=== PATIENT | male | born 1970 | race African-American/Black ===

== ENCOUNTER 2018-11-04 10:56 | Emergency (ER) | payer OTHER ==
[2018-11-04 11:01] VITALS: BP 110/67
[2018-11-04] MEDS ORDERED: BESIFLOXACIN HCL 0.6% OPH SUSP 5 ML BOTTLE OS PRN (11:25)
--- NOTE | 2018-11-04 11:27 | ER Document Report ---
HPI - HPI Time Seen by Provider: 11/04/18 11:13 Pain Level: 4 Notes: Patient is a 47-year-old male with no significant past medical history who presents complaining of left eye redness, irritation, watering/tearing after possibly irritating his eye when he was spray painting a few days ago at work. Patient states that he does wear contact lenses and has continued to wear them. Denies drug allergies. No other concerns or complaints. He has not noticed any changes in his vision otherwise or recent illness. Denies any headache, fever, neck pain, changes in vision/speech/mentation/hearing, URI, sore throat, chest pain, palpitations, syncope, cough, shortness of breath, wheeze, dyspnea, abdominal pain, nausea/vomiting/diarrhea, urinary retention, dysuria, hematuria, or rash. - ROS Systems Reviewed and Negative: Yes All other systems reviewed and negative - CONSTITUTIONAL Constitutional: DENIES: Fever, Chills - EENT EENT: REPORTS: Eye problems - left eye Past Medical History - Social History Smoking Status: Unknown if Ever Smoked Family History: Reviewed & Not Pertinent Patient has suicidal ideation: No Patient has homicidal ideation: No Renal/ Medical History: Denies: Hx Peritoneal Dialysis Past Surgical History: Reports: Hx Orthopedic Surgery Vertical Provider Document - CONSTITUTIONAL Agree With Documented VS: Yes Notes: PHYSICAL EXAMINATION: GENERAL: Well-appearing, well-nourished and in no acute distress. A&Ox4 HEAD: Atraumatic, normocephalic. EYES: Pupils equal round and reactive to light, extraocular movements intact, sclera anicteric, conjunctiva left shows injection with tearing. Rt w/o injection discharge or matting. Non-tender to palp of the globe and eye itself. No surrounding erythema or swelling noted. See visual acuity. Wood's lamp/flourescein: There is a white opacification vs paint noted to white light. + possible ulceration with uptake noted 12 o'clock position or cornea. No dung sign noted. ENT: EAC clear b/l. TM's intact b/l without erythema, fluid, or perforation. Nares patent and without discharge. oropharynx clear without exudates. No tonsilar hypertrophy or erythema. Moist mucous membranes. No sinus tenderness. Uvula midline. No palatine shift. No airway compromise. No drooling or h oarseness. NECK: Normal range of motion, supple without lymphadenopathy. No rigidity/meningismus. LUNGS: Breath sounds clear to auscultation bilaterally and equal. No wheezes rales or rhonchi. HEART: Regular rate and rhythm without murmurs, rubs, gallops. NEUROLOGICAL: Cranial nerves grossly intact. Normal speech, normal gait. PSYCH: Normal mood, normal affect. SKIN: Warm, Dry, normal turgor, no rashes or lesions noted. - INFECTION CONTROL TRAVEL OUTSIDE OF THE [place] IN LAST 30 DAYS: No Course - Re-evaluation Re-evalutation: 11/04/18 11:34 Patient is an afebrile, well-hydrated, 47-year-old male who presents with possible corneal ulceration. Vitals are acceptable. PE is otherwise unremarkable. Patient's contact was removed upon my initial evaluation and I told him just to throw them out. I did call and speak with ophthalmology, Dr. Fowler, who recommends [facility] and calling their office when he leaves here as they may want to see him this afternoon. I told the patient of the importance of follow-up and calling them when he leaves here and patient is in agreement with this plan. Patient is otherwise nontoxic-appearing and is tolerating p.o. without difficulty. Low suspicion for any retained corneal or lid foreign body, deep space infection including orbital cellulitis/abscess, acute glaucoma, penetrating globe injury, retinal detachment, meningitis, sepsis, fracture, compartment syndrome. Besivance was given today and applied. Conservative measures otherwise for symptoms with proper handwashing. Recheck with your PCM in 3-5 days. Information given for Dr. Fowler's office for him to call when he is discharged from here. Return to the ED with any worsening/concerning symptoms otherwise as reviewed in discharge. - Vital Signs Vital signs: Temp Pulse Resp BP Pulse Ox 97.7 F 68 16 110/67 96 11/04/18 11:00 11/04/18 11:00 11/04/18 11:11/04/18 11:11/04/18 11:00 Procedures - Eye Procedure Left Time completed: 11:25 Eye Irrigated w/ Saline (ccs): 20 Alcaine Drops Administered: Yes - Tetracaine Fluorescein applied: Left Discharge - Discharge Clinical Impression: Corneal ulcer Qualifiers: Laterality: left Qualified Code(s): H16.002 - Unspecified corneal ulcer, left eye Condition: Stable Disposition: HOME, SELF-CARE Instructions: Eyedrop Use ([facility]) Additional Instructions: Call Dr. Fowler's office when you leave as they may want to see you this afternoon in their office* Keep eyes clean Avoid scratching/touching eyes Wash hands regularly Use eye drops as directed Maintain adequate fluid intake tylenol/ibuprofen as needed over the counter cold medication as needed for symptoms F/u: with your PCM as needed Return to the ED with any worsening symptoms and/or development of fever, headache, changes in vision, eye pain, worsening eye redness, redness around the eyes, purulent discharge, sore throat, facial swelling, neck pain/stiffness, chest pain, palpitations, syncope, shortness of breath, trouble breathing, abdominal pain, n/v/d, blood in stool/urine, dysuria, or other worsening symptoms that are concerning to you. Referrals: GEORGIANA FOWLER DO [ACTIVE STAFF] - 11/04/18
== END 2018-11-04 11:43 | disposition home or self-care (01) ==
LOC: ER 10:56
DX: H16.002 Unspecified corneal ulcer, left eye (principal)
CPT/HCPCS: 99283